=== PATIENT | female | born 1940 | race Caucasian/White ===

== ENCOUNTER 2025-06-23 16:10 | Emergency (ER) | payer MEDICARE, MEDICAID ==
[~2025-06-23] VITALS: Ht 154.9 cm; Wt 59.0 kg
[2025-06-23 16:12] VITALS: TEMP 36.9; O2SAT 99
[2025-06-23] MEDS: HALOPERIDOL LACTATE 5MG/ML VIAL IM ONE (18:15)
[2025-06-23 19:56] VITALS: BP 166/61; PULSE 75; RESP 12; O2SAT 99
== END 2025-06-23 19:58 | disposition home or self-care (01) ==
LOC: ER 16:10 → CMPBEDREQ 06-24 03:16
DX: F03.92 Unspecified dementia, unspecified severity, with psychotic disturbance (principal)
CPT/HCPCS: 93005; 99283